=== PATIENT | male | born 1960 | race African-American/Black ===

== ENCOUNTER 2016-08-02 20:46 | Emergency (ER) | payer MEDICAID ==
[~2016-08-02] VITALS: Ht 180.3 cm; Wt 82.0 kg
[~2016-08-02 20:46] MED LIST: AMLO-511 PO; CARI350 PO; CEPH500 PO; GABA-531 PO; HUM10VIA SQ; LISI20TA PO; OXYC-158 PO
[2016-08-02] MEDS ORDERED: OXYC40 PO (21:14)
[2016-08-03 06:11] VITALS: BP 141/62
== END 2016-08-03 06:39 | disposition home or self-care (01) ==
LOC: EMS 20:47
DX: T68.XXXA Hypothermia, initial encounter (principal); S31.000D Unspecified open wound of lower back and pelvis without penetration into retroperitoneum, subsequent encounter; E11.9 Type 2 diabetes mellitus without complications; I10 Essential (primary) hypertension; Z59.0 Homelessness
CPT/HCPCS: 82962; 99283

== ENCOUNTER 2016-08-03 08:39 | Emergency (ER) | payer MEDICAID ==
[~2016-08-03] VITALS: Ht 175.3 cm; Wt 64.0 kg
[~2016-08-03 08:39] MED LIST changes: -CEPH500 PO; +OXYC40 PO
[2016-08-03 09:11] LABS: GLUCOSE,POINT OF CARE 109 MG/DL (70-110)
[2016-08-03 17:00] VITALS: BP 148/86
== END 2016-08-03 17:42 | disposition home or self-care (01) ==
LOC: EMS 08:40
DX: R52 Pain, unspecified (principal); Z99.3 Dependence on wheelchair; I10 Essential (primary) hypertension; E11.9 Type 2 diabetes mellitus without complications; Z86.73 Personal history of transient ischemic attack (TIA), and cerebral infarction without residual deficits; Z79.4 Long term (current) use of insulin
CPT/HCPCS: 82962; 99283

== ENCOUNTER 2016-08-04 07:07 | Emergency (ER) | payer MEDICAID ==
[~2016-08-04] VITALS: Ht 170.2 cm; Wt 72.5 kg
[~2016-08-04 07:07] MED LIST changes: +CEPH500 PO
[2016-08-04 08:32] LABS: GLUCOSE,POINT OF CARE 257 MG/DL (70-110)
[2016-08-04 16:40] VITALS: BP 134/73
== END 2016-08-04 16:42 | disposition home or self-care (01) ==
LOC: EMS 07:08
DX: Z99.3 Dependence on wheelchair (principal); E11.9 Type 2 diabetes mellitus without complications; I10 Essential (primary) hypertension; Z86.73 Personal history of transient ischemic attack (TIA), and cerebral infarction without residual deficits; Z79.4 Long term (current) use of insulin
CPT/HCPCS: 82962; 99283

== ENCOUNTER 2017-10-28 18:59 | Emergency (ER) | payer MEDICAID ==
[~2017-10-28] VITALS: Ht 172.7 cm; Wt 77.0 kg
[~2017-10-28 18:59] MED LIST changes: -CEPH500 PO
[2017-10-28] MEDS ORDERED: LISI-662 PO (19:16)
[2017-10-28] MEDS ORDERED: METF500T7 PO (19:16)
[2017-10-28] MEDS ORDERED: DOXY100C PO (19:16)
[2017-10-28] MEDS ORDERED: AMOX500C2 PO (19:16)
[2017-10-28] MEDS ORDERED: ASPI-1182 PO (19:16)
[2017-10-28] MEDS ORDERED: AMLO-512 PO (19:16)
[2017-10-28] MEDS ORDERED: SITA100 PO (19:16)
[2017-10-28] MEDS ORDERED: ATOR40TA28 PO (19:16)
[2017-10-28] MEDS ORDERED: GABA-531 PO (19:16)
[2017-10-28 19:27] LABS: GLUCOSE,POINT OF CARE 169 MG/DL (70-110)
[2017-10-28 19:40] LABS: BASOPHILS % (AUTO) 0.6 % (0.0-2.0); EOSINOPHILS % (AUTO) 4.6 % (1.0-6.0); HEMATOCRIT 34.9 % (41-53); HEMOGLOBIN 11.9 g/dL (13.5-17.5); LYMPHOCYTES # (AUTO) 1.6 K/uL (1.0-4.8); LYMPHOCYTES % (AUTO) 20.1 % (22.0-44.0); MEAN CORPUSCULAR HEMOGLOBIN 26.9 pg (26.0-34.0); MEAN CORPUSCULAR HGB CONC 34.2 G/dL (31.0-37.0); MEAN CORPUSCULAR VOLUME 79 fL (80-100); MONOCYTES # (AUTO) 0.6 K/uL (0.1-1.0); MONOCYTES % (AUTO) 7.3 % (2.0-9.0); NEUTROPHILS # (AUTO) 5.2 K/uL (1.8-7.7); NEUTROPHILS % (AUTO) 67.4 % (40.0-70.0); PLATELET COUNT (AUTO) 316 K/uL (150-450); RED BLOOD CELL COUNT(AUTO) 4.43 MIL/uL (4.50-5.90); RED CELL DISTRIBUTION WIDTH 14.2 % (11.5-14.5)
[2017-10-28 19:57] LABS: ANION GAP 2 mmol/L (8-16); CALCIUM, TOTAL 9.1 mg/dL (8.8-10.5); CARBON DIOXIDE 34 mmol/L (22-29); CHLORIDE 101 mmol/L (98-107); CREATININE 0.87 mg/dL (0.60-1.30); GLOMERULAR FILTR. RATE CALC > 60 mL/min (>60); GLUCOSE,RANDOM 157 mg/dL (70-110); POTASSIUM 3.7 mmol/L (3.5-5.1); SODIUM SERUM 137 mmol/L (136-145); UREA NITROGEN, BLOOD 33 mg/dL (7-18)
[2017-10-28 20:02] VITALS: BP 149/69
[2017-10-28 20:02] LABS: ALANINE AMINOTRANSFERASE 36 U/L (12-78); ALBUMIN 3.1 g/dL (3.4-5.0); ALKALINE PHOSPHATASE 84 U/L (46-116); ASPARTATE AMINOTRANSFERASE 27 U/L (15-37); BILIRUBIN,TOTAL 0.1 mg/dL (0.1-1.0); TOTAL PROTEIN, SERUM 7.7 g/dL (6.4-8.2)
== END 2017-10-28 21:16 | disposition home or self-care (01) ==
LOC: EMS 18:59
DX: E11.621 Type 2 diabetes mellitus with foot ulcer (principal); L97.519 Non-pressure chronic ulcer of other part of right foot with unspecified severity; L89.329 Pressure ulcer of left buttock, unspecified stage; I10 Essential (primary) hypertension; Z79.82 Long term (current) use of aspirin; Z86.73 Personal history of transient ischemic attack (TIA), and cerebral infarction without residual deficits; Z88.1 Allergy status to other antibiotic agents; Z89.421 Acquired absence of other right toe(s); Z79.4 Long term (current) use of insulin; Z89.612 Acquired absence of left leg above knee; Z99.3 Dependence on wheelchair; Z79.899 Other long term (current) drug therapy
CPT/HCPCS: 99284

== ENCOUNTER 2018-09-17 03:58 | Inpatient (IN) | payer MEDICAID ==
[~2018-09-17] VITALS: Ht 180.3 cm; Wt 75.0 kg
[~2018-09-17 03:58] MED LIST changes: -AMLO-511 PO; +AMLO-512 PO; +AMOX500C2 PO; +ASPI-1182 PO; +ATOR40TA28 PO; -CARI350 PO; +DOXY100C PO; -HUM10VIA SQ; +LISI-662 PO; -LISI20TA PO; +METF500T7 PO; -OXYC-158 PO; -OXYC40 PO; +SITA100 PO
[2018-09-17 04:14] LABS: GLUCOSE,POINT OF CARE 304 MG/DL (70-110)
[2018-09-17] MEDS ORDERED: SODIUM CHLORIDE 0.9% 1,000 ML IV ONE (04:15)
[2018-09-17] MEDS ORDERED: HYD25 PO (04:25)
[2018-09-17] MEDS ORDERED: FAMO20 PO (04:25)
[2018-09-17] MEDS ORDERED: SENN-176 PO (04:25)
[2018-09-17] MEDS ORDERED: LACT30L PO (04:25)
[2018-09-17] MEDS ORDERED: MULT-1272 PO (04:25)
[2018-09-17] MEDS ORDERED: INSNOV SQ (04:25)
[2018-09-17] MEDS ORDERED: TEMA7.5C17 PO (04:25)
[2018-09-17] MEDS ORDERED: MONT10TA21 PO (04:25)
[2018-09-17] MEDS ORDERED: AMMO225L14 TP (04:25)
[2018-09-17] MEDS ORDERED: BISA5TAB12 PO (04:25)
[2018-09-17] MEDS ORDERED: THIA100T67 PO (04:25)
[2018-09-17] MEDS ORDERED: OLAN10TA3 PO (04:25)
[2018-09-17] MEDS ORDERED: HYDR25TA84 PO (04:25)
[2018-09-17] MEDS ORDERED: HYDR-4061 PO (04:25)
[2018-09-17] MEDS ORDERED: INSLAN SQ (04:25)
[2018-09-17 05:03] LABS: BASOPHILS % (AUTO) 0.9 % (0.0-2.0); EOSINOPHILS % (AUTO) 7.3 % (1.0-6.0); HEMATOCRIT 32.3 % (41-53); HEMOGLOBIN 10.6 g/dL (13.5-17.5); LYMPHOCYTES # (AUTO) 1.6 K/uL (1.0-4.8); LYMPHOCYTES % (AUTO) 18.8 % (22.0-44.0); MEAN CORPUSCULAR HEMOGLOBIN 24.2 pg (26.0-34.0); MEAN CORPUSCULAR HGB CONC 32.8 G/dL (31.0-37.0); MEAN CORPUSCULAR VOLUME 74 fL (80-100); MONOCYTES # (AUTO) 0.7 K/uL (0.1-1.0); MONOCYTES % (AUTO) 8.8 % (2.0-9.0); NEUTROPHILS # (AUTO) 5.4 K/uL (1.8-7.7); NEUTROPHILS % (AUTO) 64.2 % (40.0-70.0); PLATELET COUNT (AUTO) 238 K/uL (150-450); RED BLOOD CELL COUNT(AUTO) 4.38 MIL/uL (4.50-5.90); RED CELL DISTRIBUTION WIDTH 20.7 % (11.5-14.5)
[2018-09-17 05:14] LABS: PROTHROMBIN TIME 10.2 SEC (9.4-11.6)
[2018-09-17 05:27] LABS: ALANINE AMINOTRANSFERASE 24 U/L (12-78); ALBUMIN 3.2 g/dL (3.4-5.0); ALKALINE PHOSPHATASE 94 U/L (46-116); ANION GAP 7 mmol/L (8-16); ASPARTATE AMINOTRANSFERASE 21 U/L (15-37); BILIRUBIN,TOTAL 0.3 mg/dL (0.1-1.0); CALCIUM, TOTAL 8.7 mg/dL (8.8-10.5); CARBON DIOXIDE 27 mmol/L (22-29); CHLORIDE 101 mmol/L (98-107); CREATINE KINASE, TOTAL ONLY 674 U/L (39-308); CREATININE 1.24 mg/dL (0.60-1.30); GLOMERULAR FILTR. RATE CALC > 60 mL/min (>60); GLUCOSE,RANDOM 256 mg/dL (70-110); POTASSIUM 3.6 mmol/L (3.5-5.1); SODIUM SERUM 135 mmol/L (136-145); TOTAL PROTEIN, SERUM 7.5 g/dL (6.4-8.2)
[2018-09-17 06:15] LABS: UREA NITROGEN, BLOOD 25 mg/dL (7-18)
[2018-09-17] MEDS ORDERED: 0.9% SODIUM CHLORIDE 10 ML SYRINGE IVP PRN (07:30)
[2018-09-17] MEDS ORDERED: ONDANSETRON HCL 4 MG/2 ML VIAL IVP PRN (07:30)
[2018-09-17] MEDS ORDERED: ACETAMINOPHEN 325 MG TABLET PO PRN (07:30)
[2018-09-17 08:15] LABS: GLUCOSE,POINT OF CARE 221 MG/DL (70-110)
[2018-09-17 08:55] VITALS: BP 151/85
[2018-09-17] MEDS ORDERED: DEXTROSE 50%-WATER 25 GM/50 ML SYRINGE IVP PRN (09:45)
[2018-09-17] MEDS ORDERED: MAGNESIUM HYDROXIDE SUSPENSION 30 ML UDCUP PO PRN (09:45)
[2018-09-17] MEDS ORDERED: ALBUTEROL SULFATE 2.5 MG/0.5 ML NEB SOLUTION NEB PRN (09:45)
[2018-09-17] MEDS: MULTIVITAMINS WITH MINERALS, THERAPEUTIC TABLET PO SCH (10:35)
[2018-09-17] MEDS: AmLODIPine BESYLATE 10 MG TABLET PO SCH (10:36)
[2018-09-17] MEDS: ASPIRIN 81 MG CHEWABLE TABLET PO SCH (10:36)
[2018-09-17 11:50] VITALS: BP 148/74
[2018-09-17] MEDS: INSULIN LISPRO 100 UNITS/ML SQ PRN ×3 (11:55→21:49)
[2018-09-17 11:59] LABS: GLUCOMETER DEV NAME(LOC) 5N.2; GLUCOSE,POINT OF CARE 243 MG/DL (70-110)
[2018-09-17] MEDS: HEPARIN SODIUM,PORCINE 5,000 UNITS/ML VIAL SQ SCH ×2 (16:00→23:35)
[2018-09-17 16:04] VITALS: BP 139/71
[2018-09-17 19:20] VITALS: BP 140/86
[2018-09-17 19:39] LABS: GLUCOMETER DEV NAME(LOC) 5N.2; GLUCOSE,POINT OF CARE 255 MG/DL (70-110)
[2018-09-17] MEDS: ATORVASTATIN CALCIUM 20 MG TABLET PO SCH (20:14)
[2018-09-17] MEDS: DOCUSATE SODIUM 100 MG CAPSULE PO SCH (20:14)
[2018-09-17 20:22] LABS: APPEARANCE,URINE CLEAR (CLEAR); BILIRUBIN,URINE NEGATIVE (NEGATIVE); GLUCOSE, URINE (UA) 250 mg/dL (NEGATIVE); KETONES,URINE NEGATIVE (NEGATIVE); LEUKOCYTE ESTERASE ,URINE NEGATIVE (NEGATIVE); NITRATE,URINE NEGATIVE (NEGATIVE); OCCULT BLOOD,URINE NEGATIVE (NEGATIVE); PH,URINE 5.5 (5.0-8.0); PROTEIN,URINE TRACE (NEGATIVE); UROBILINOGEN,URINE 0.2 mg/dL (<=1.0)
[2018-09-17 20:26] LABS: AMPHET/METH SCREEN,URINE POSITIVE (NEGATIVE); BARBITURATE SCREEN, URINE NEGATIVE (NEGATIVE); BENZODIAZEPINES SCREEN,URINE NEGATIVE (NEGATIVE); CANNABINOID SCREEN,URINE POSITIVE (NEGATIVE); COCAINE SCREEN,URINE NEGATIVE (NEGATIVE); METHADONE SCREEN, URINE NEGATIVE (NEGATIVE); OPIATE SCREEN,URINE NEGATIVE (NEGATIVE)
[2018-09-17 20:27] LABS: PHENCYCLIDINE SCREEN,URINE NEGATIVE (NEGATIVE)
[2018-09-17 20:29] LABS: BACTERIA,URINE None Seen /HPF (None Seen); RBC,URINE None Seen /HPF (0-2); WBC,URINE None Seen /HPF (0-5)
[2018-09-17 21:39] LABS: GLUCOMETER DEV NAME(LOC) 5N.2; GLUCOSE,POINT OF CARE 248 MG/DL (70-110)
[2018-09-17 23:13] VITALS: BP 150/87
[2018-09-18 05:17] VITALS: BP 152/92
[2018-09-18 07:33] VITALS: BP 156/80
[2018-09-18] MEDS: AmLODIPine BESYLATE 10 MG TABLET PO SCH (07:54)
[2018-09-18] MEDS: MULTIVITAMINS WITH MINERALS, THERAPEUTIC TABLET PO SCH (07:54)
[2018-09-18] MEDS: DOCUSATE SODIUM 100 MG CAPSULE PO SCH ×2 (07:54→20:37)
[2018-09-18] MEDS: ASPIRIN 81 MG CHEWABLE TABLET PO SCH (07:54)
[2018-09-18] MEDS: INSULIN LISPRO 100 UNITS/ML SQ PRN ×4 (07:55→21:02)
[2018-09-18] MEDS: HEPARIN SODIUM,PORCINE 5,000 UNITS/ML VIAL SQ SCH ×3 (07:55→23:27)
[2018-09-18] MEDS: FAMOTIDINE 20 MG TABLET PO SCH (08:31)
[2018-09-18 11:30] VITALS: BP 158/72
[2018-09-18 12:14] LABS: GLUCOMETER DEV NAME(LOC) 5N.2; GLUCOSE,POINT OF CARE 172 MG/DL (70-110)
[2018-09-18 12:14] LABS: GLUCOMETER DEV NAME(LOC) 5N.2; GLUCOSE,POINT OF CARE 218 MG/DL (70-110)
[2018-09-18 15:51] VITALS: BP 163/89
[2018-09-18 19:00] VITALS: BP 163/92
[2018-09-18 20:20] LABS: GLUCOMETER DEV NAME(LOC) 5N.2; GLUCOSE,POINT OF CARE 181 MG/DL (70-110)
[2018-09-18] MEDS: ATORVASTATIN CALCIUM 20 MG TABLET PO SCH (20:37)
[2018-09-18] MEDS: OxyCODONE HCL/ACETAMINOPHEN 5-325 MG TABLET PO PRN (20:37)
[2018-09-18 20:49] LABS: GLUCOMETER DEV NAME(LOC) 5N.2; GLUCOSE,POINT OF CARE 211 MG/DL (70-110)
[2018-09-18 23:27] VITALS: BP 157/79
[2018-09-19 04:00] VITALS: BP 125/79
[2018-09-19] MEDS: INSULIN LISPRO 100 UNITS/ML SQ PRN ×4 (05:23→20:21)
[2018-09-19 05:54] LABS: GLUCOMETER DEV NAME(LOC) 5N.2; GLUCOSE,POINT OF CARE 213 MG/DL (70-110)
[2018-09-19 08:43] VITALS: BP 174/93
[2018-09-19] MEDS: DOCUSATE SODIUM 100 MG CAPSULE PO SCH ×2 (09:06→20:14)
[2018-09-19] MEDS: FAMOTIDINE 20 MG TABLET PO SCH (09:06)
[2018-09-19] MEDS: ASPIRIN 81 MG CHEWABLE TABLET PO SCH (09:06)
[2018-09-19] MEDS: OxyCODONE HCL/ACETAMINOPHEN 5-325 MG TABLET PO PRN (09:07)
[2018-09-19] MEDS: HEPARIN SODIUM,PORCINE 5,000 UNITS/ML VIAL SQ SCH ×2 (09:07→16:09)
[2018-09-19] MEDS: MULTIVITAMINS WITH MINERALS, THERAPEUTIC TABLET PO SCH (09:07)
[2018-09-19] MEDS: AmLODIPine BESYLATE 10 MG TABLET PO SCH (09:07)
[2018-09-19 09:18] LABS: BASOPHILS % (AUTO) 0.8 % (0.0-2.0); EOSINOPHILS % (AUTO) 8.8 % (1.0-6.0); HEMATOCRIT 32.2 % (41-53); HEMOGLOBIN 10.7 g/dL (13.5-17.5); LYMPHOCYTES # (AUTO) 1.4 K/uL (1.0-4.8); LYMPHOCYTES % (AUTO) 23.7 % (22.0-44.0); MEAN CORPUSCULAR HEMOGLOBIN 24.5 pg (26.0-34.0); MEAN CORPUSCULAR HGB CONC 33.2 G/dL (31.0-37.0); MEAN CORPUSCULAR VOLUME 74 fL (80-100); MONOCYTES # (AUTO) 0.6 K/uL (0.1-1.0); MONOCYTES % (AUTO) 9.7 % (2.0-9.0); NEUTROPHILS # (AUTO) 3.3 K/uL (1.8-7.7); PLATELET COUNT (AUTO) 273 K/uL (150-450); RED BLOOD CELL COUNT(AUTO) 4.35 MIL/uL (4.50-5.90); RED CELL DISTRIBUTION WIDTH 20.4 % (11.5-14.5)
[2018-09-19 09:32] LABS: ALANINE AMINOTRANSFERASE 19 U/L (12-78); ALBUMIN 2.9 g/dL (3.4-5.0); ALKALINE PHOSPHATASE 83 U/L (46-116); ANION GAP 8 mmol/L (8-16); ASPARTATE AMINOTRANSFERASE 12 U/L (15-37); BILIRUBIN,TOTAL 0.2 mg/dL (0.1-1.0); CALCIUM, TOTAL 8.8 mg/dL (8.8-10.5); CARBON DIOXIDE 29 mmol/L (22-29); CHLORIDE 104 mmol/L (98-107); CREATININE 0.91 mg/dL (0.60-1.30); GLOMERULAR FILTR. RATE CALC > 60 mL/min (>60); GLUCOSE,RANDOM 241 mg/dL (70-110); POTASSIUM 3.8 mmol/L (3.5-5.1); SODIUM SERUM 141 mmol/L (136-145); TOTAL PROTEIN, SERUM 7.3 g/dL (6.4-8.2); UREA NITROGEN, BLOOD 19 mg/dL (7-18)
[2018-09-19 11:46] VITALS: BP 157/91
[2018-09-19 12:19] LABS: GLUCOMETER DEV NAME(LOC) 5N.2; GLUCOSE,POINT OF CARE 272 MG/DL (70-110)
[2018-09-19 15:44] VITALS: BP 140/80
[2018-09-19] MEDS ORDERED: OxyCODONE HCL 20 MG ER TABLET PO PRN (17:45)
[2018-09-19] MEDS: ATORVASTATIN CALCIUM 20 MG TABLET PO SCH (20:14)
[2018-09-19] MEDS: OxyCODONE HCL 20 MG ER TABLET PO SCH (20:14)
[2018-09-19 20:24] VITALS: BP 169/89
[2018-09-19 22:17] LABS: GLUCOMETER DEV NAME(LOC) 5N.2; GLUCOSE,POINT OF CARE 146 MG/DL (70-110)
[2018-09-19 22:17] LABS: GLUCOMETER DEV NAME(LOC) 5N.2; GLUCOSE,POINT OF CARE 216 MG/DL (70-110)
[2018-09-20] VITALS (7 sets, daily range): BP systolic 151–166; BP diastolic 68–87
[2018-09-20] MEDS: HEPARIN SODIUM,PORCINE 5,000 UNITS/ML VIAL SQ SCH ×4 (00:15→23:46)
[2018-09-20] MEDS: OxyCODONE HCL/ACETAMINOPHEN 5-325 MG TABLET PO PRN ×2 (00:15→15:59)
[2018-09-20 05:40] LABS: GLUCOMETER DEV NAME(LOC) 5N.2; GLUCOSE,POINT OF CARE 194 MG/DL (70-110)
[2018-09-20 05:51] LABS: BASOPHILS % (AUTO) 0.7 % (0.0-2.0); EOSINOPHILS % (AUTO) 7.1 % (1.0-6.0); HEMATOCRIT 31.5 % (41-53); HEMOGLOBIN 10.5 g/dL (13.5-17.5); LYMPHOCYTES # (AUTO) 2.1 K/uL (1.0-4.8); LYMPHOCYTES % (AUTO) 30.3 % (22.0-44.0); MEAN CORPUSCULAR HEMOGLOBIN 24.5 pg (26.0-34.0); MEAN CORPUSCULAR HGB CONC 33.2 G/dL (31.0-37.0); MEAN CORPUSCULAR VOLUME 74 fL (80-100); MONOCYTES # (AUTO) 0.7 K/uL (0.1-1.0); MONOCYTES % (AUTO) 10.3 % (2.0-9.0); NEUTROPHILS # (AUTO) 3.5 K/uL (1.8-7.7); NEUTROPHILS % (AUTO) 51.6 % (40.0-70.0); PLATELET COUNT (AUTO) 299 K/uL (150-450); RED BLOOD CELL COUNT(AUTO) 4.27 MIL/uL (4.50-5.90); RED CELL DISTRIBUTION WIDTH 20.5 % (11.5-14.5)
[2018-09-20 06:18] LABS: ALANINE AMINOTRANSFERASE 14 U/L (12-78); ALKALINE PHOSPHATASE 82 U/L (46-116); ANION GAP 5 mmol/L (8-16); ASPARTATE AMINOTRANSFERASE 12 U/L (15-37); BILIRUBIN,TOTAL 0.2 mg/dL (0.1-1.0); CALCIUM, TOTAL 9.1 mg/dL (8.8-10.5); CARBON DIOXIDE 31 mmol/L (22-29); CHLORIDE 101 mmol/L (98-107); CREATININE 0.98 mg/dL (0.60-1.30); GLOMERULAR FILTR. RATE CALC > 60 mL/min (>60); GLUCOSE,RANDOM 191 mg/dL (70-110); POTASSIUM 3.9 mmol/L (3.5-5.1); SODIUM SERUM 137 mmol/L (136-145); TOTAL PROTEIN, SERUM 7.6 g/dL (6.4-8.2); UREA NITROGEN, BLOOD 20 mg/dL (7-18)
[2018-09-20] MEDS: INSULIN LISPRO 100 UNITS/ML SQ PRN ×4 (06:31→20:49)
[2018-09-20] MEDS: DOCUSATE SODIUM 100 MG CAPSULE PO SCH ×2 (08:25→20:22)
[2018-09-20] MEDS: FAMOTIDINE 20 MG TABLET PO SCH (08:25)
[2018-09-20] MEDS: ASPIRIN 81 MG CHEWABLE TABLET PO SCH (08:25)
[2018-09-20] MEDS: OxyCODONE HCL 20 MG ER TABLET PO SCH ×2 (08:25→20:21)
[2018-09-20] MEDS: MULTIVITAMINS WITH MINERALS, THERAPEUTIC TABLET PO SCH (08:25)
[2018-09-20] MEDS: AmLODIPine BESYLATE 10 MG TABLET PO SCH (08:25)
[2018-09-20 12:15] LABS: GLUCOMETER DEV NAME(LOC) 5N.2; GLUCOSE,POINT OF CARE 221 MG/DL (70-110)
[2018-09-20 18:15] LABS: GLUCOMETER DEV NAME(LOC) 5N.2; GLUCOSE,POINT OF CARE 188 MG/DL (70-110)
[2018-09-20] MEDS: ATORVASTATIN CALCIUM 20 MG TABLET PO SCH (20:21)
[2018-09-20 21:39] LABS: GLUCOMETER DEV NAME(LOC) 5N.2; GLUCOSE,POINT OF CARE 192 MG/DL (70-110)
[2018-09-20] MEDS ORDERED: HydrOXYzine HCL 25 MG TABLET PO PRN (23:30)
[2018-09-20] MEDS ORDERED: DEXTROSE 50%-WATER 25 GM/50 ML SYRINGE IVP PRN (23:30)
[2018-09-20] MEDS: HydrALAZINE HCL 25 MG TABLET PO SCH (23:44)
[2018-09-20] MEDS: INSULIN GLARGINE,HUM.REC.ANLOG 100 UNITS/ML SQ SCH (23:45)
[2018-09-21 04:36] VITALS: BP 151/78
[2018-09-21 05:45] LABS: GLUCOMETER DEV NAME(LOC) 5N.2; GLUCOSE,POINT OF CARE 189 MG/DL (70-110)
[2018-09-21] MEDS: INSULIN LISPRO 100 UNITS/ML SQ PRN ×3 (07:00→17:53)
[2018-09-21] MEDS: HydrALAZINE HCL 25 MG TABLET PO SCH ×3 (07:01→23:20)
[2018-09-21 07:09] VITALS: BP 158/81
[2018-09-21] MEDS: FAMOTIDINE 20 MG TABLET PO SCH (08:08)
[2018-09-21] MEDS: THIAMINE HCL 100 MG TABLET PO SCH (08:08)
[2018-09-21] MEDS: DOCUSATE SODIUM 100 MG CAPSULE PO SCH ×2 (08:08→20:17)
[2018-09-21] MEDS: MULTIVITAMINS WITH MINERALS, THERAPEUTIC TABLET PO SCH ×2 (08:08→09:00)
[2018-09-21] MEDS: AmLODIPine BESYLATE 10 MG TABLET PO SCH (08:08)
[2018-09-21] MEDS: HEPARIN SODIUM,PORCINE 5,000 UNITS/ML VIAL SQ SCH ×3 (08:08→23:20)
[2018-09-21] MEDS: ASPIRIN 81 MG CHEWABLE TABLET PO SCH (08:08)
[2018-09-21] MEDS: LACTULOSE 20 GM/30 ML SOLUTION UDCUP PO SCH (08:09)
[2018-09-21] MEDS: OLANZapine 10 MG TABLET PO SCH ×2 (09:00→20:16)
[2018-09-21] MEDS: OxyCODONE HCL 20 MG ER TABLET PO SCH ×2 (09:18→20:27)
[2018-09-21] MEDS: SENNA 187 MG TABLET PO SCH (09:31)
[2018-09-21 10:45] LABS: BASOPHILS % (AUTO) 0.8 % (0.0-2.0); EOSINOPHILS % (AUTO) 3.7 % (1.0-6.0); HEMATOCRIT 32.7 % (41-53); HEMOGLOBIN 10.7 g/dL (13.5-17.5); LYMPHOCYTES # (AUTO) 1.1 K/uL (1.0-4.8); LYMPHOCYTES % (AUTO) 8.7 % (22.0-44.0); MEAN CORPUSCULAR HEMOGLOBIN 24.3 pg (26.0-34.0); MEAN CORPUSCULAR HGB CONC 32.8 G/dL (31.0-37.0); MEAN CORPUSCULAR VOLUME 74 fL (80-100); MONOCYTES # (AUTO) 0.9 K/uL (0.1-1.0); MONOCYTES % (AUTO) 7.6 % (2.0-9.0); NEUTROPHILS # (AUTO) 9.8 K/uL (1.8-7.7); NEUTROPHILS % (AUTO) 79.2 % (40.0-70.0); PLATELET COUNT (AUTO) 297 K/uL (150-450); RED BLOOD CELL COUNT(AUTO) 4.42 MIL/uL (4.50-5.90); RED CELL DISTRIBUTION WIDTH 20.1 % (11.5-14.5)
[2018-09-21 11:01] LABS: ALANINE AMINOTRANSFERASE 14 U/L (12-78); ALBUMIN 3.1 g/dL (3.4-5.0); ALKALINE PHOSPHATASE 88 U/L (46-116); ANION GAP 7 mmol/L (8-16); ASPARTATE AMINOTRANSFERASE 13 U/L (15-37); BILIRUBIN,TOTAL 0.2 mg/dL (0.1-1.0); CALCIUM, TOTAL 9.5 mg/dL (8.8-10.5); CARBON DIOXIDE 28 mmol/L (22-29); CHLORIDE 99 mmol/L (98-107); CREATININE 1.01 mg/dL (0.60-1.30); GLOMERULAR FILTR. RATE CALC > 60 mL/min (>60); GLUCOSE,RANDOM 274 mg/dL (70-110); POTASSIUM 4.3 mmol/L (3.5-5.1); SODIUM SERUM 134 mmol/L (136-145); TOTAL PROTEIN, SERUM 7.8 g/dL (6.4-8.2); UREA NITROGEN, BLOOD 22 mg/dL (7-18)
[2018-09-21 11:11] VITALS: BP 157/76
[2018-09-21 15:17] VITALS: BP 149/85
[2018-09-21 15:28] LABS: GLUCOMETER DEV NAME(LOC) 5N.2; GLUCOSE,POINT OF CARE 247 MG/DL (70-110)
[2018-09-21 17:25] LABS: GLUCOMETER DEV NAME(LOC) 5N.2; GLUCOSE,POINT OF CARE 181 MG/DL (70-110)
[2018-09-21 19:15] VITALS: BP 153/90
[2018-09-21] MEDS: ATORVASTATIN CALCIUM 20 MG TABLET PO SCH (20:16)
[2018-09-21] MEDS: OxyCODONE HCL/ACETAMINOPHEN 5-325 MG TABLET PO PRN (20:16)
[2018-09-21] MEDS: TEMAZEPAM 7.5 MG CAPSULE PO SCH (20:16)
[2018-09-21] MEDS: MONTELUKAST SODIUM 10 MG TABLET PO SCH (20:17)
[2018-09-21] MEDS: INSULIN GLARGINE,HUM.REC.ANLOG 100 UNITS/ML SQ SCH (20:28)
[2018-09-21 21:27] LABS: GLUCOMETER DEV NAME(LOC) 5N.2; GLUCOSE,POINT OF CARE 134 MG/DL (70-110)
[2018-09-21 23:15] VITALS: BP 135/76
[2018-09-22 04:15] VITALS: BP 141/80
[2018-09-22 05:34] LABS: GLUCOMETER DEV NAME(LOC) 5N.2; GLUCOSE,POINT OF CARE 134 MG/DL (70-110)
[2018-09-22 08:43] LABS: BASOPHILS % (AUTO) 0.7 % (0.0-2.0); EOSINOPHILS % (AUTO) 3.8 % (1.0-6.0); HEMATOCRIT 33.9 % (41-53); HEMOGLOBIN 11.1 g/dL (13.5-17.5); LYMPHOCYTES # (AUTO) 1.3 K/uL (1.0-4.8); LYMPHOCYTES % (AUTO) 14.4 % (22.0-44.0); MEAN CORPUSCULAR HEMOGLOBIN 24.3 pg (26.0-34.0); MEAN CORPUSCULAR HGB CONC 32.8 G/dL (31.0-37.0); MEAN CORPUSCULAR VOLUME 74 fL (80-100); MONOCYTES % (AUTO) 10.2 % (2.0-9.0); NEUTROPHILS # (AUTO) 6.6 K/uL (1.8-7.7); NEUTROPHILS % (AUTO) 70.9 % (40.0-70.0); PLATELET COUNT (AUTO) 306 K/uL (150-450); RED BLOOD CELL COUNT(AUTO) 4.59 MIL/uL (4.50-5.90); RED CELL DISTRIBUTION WIDTH 20.4 % (11.5-14.5)
[2018-09-22] MEDS: MULTIVITAMINS WITH MINERALS, THERAPEUTIC TABLET PO SCH ×2 (09:00→09:28)
[2018-09-22 09:09] LABS: ALANINE AMINOTRANSFERASE 15 U/L (12-78); ALBUMIN 3.1 g/dL (3.4-5.0); ALKALINE PHOSPHATASE 78 U/L (46-116); ANION GAP 8 mmol/L (8-16); ASPARTATE AMINOTRANSFERASE 15 U/L (15-37); BILIRUBIN,TOTAL 0.3 mg/dL (0.1-1.0); CALCIUM, TOTAL 9.3 mg/dL (8.8-10.5); CARBON DIOXIDE 28 mmol/L (22-29); CHLORIDE 102 mmol/L (98-107); CREATININE 1.06 mg/dL (0.60-1.30); GLOMERULAR FILTR. RATE CALC > 60 mL/min (>60); GLUCOSE,RANDOM 129 mg/dL (70-110); POTASSIUM 4.1 mmol/L (3.5-5.1); SODIUM SERUM 138 mmol/L (136-145); UREA NITROGEN, BLOOD 24 mg/dL (7-18)
[2018-09-22 09:16] VITALS: BP 150/74
[2018-09-22] MEDS: OLANZapine 10 MG TABLET PO SCH ×2 (09:28→20:33)
[2018-09-22] MEDS: OxyCODONE HCL 20 MG ER TABLET PO SCH ×2 (09:28→20:33)
[2018-09-22] MEDS: THIAMINE HCL 100 MG TABLET PO SCH (09:28)
[2018-09-22] MEDS: ASPIRIN 81 MG CHEWABLE TABLET PO SCH (09:28)
[2018-09-22] MEDS: AmLODIPine BESYLATE 10 MG TABLET PO SCH (09:28)
[2018-09-22] MEDS: DOCUSATE SODIUM 100 MG CAPSULE PO SCH ×2 (09:28→20:34)
[2018-09-22] MEDS: HydrALAZINE HCL 25 MG TABLET PO SCH ×3 (09:28→23:18)
[2018-09-22] MEDS: HEPARIN SODIUM,PORCINE 5,000 UNITS/ML VIAL SQ SCH ×3 (09:29→23:18)
[2018-09-22] MEDS: SENNA 187 MG TABLET PO SCH (09:29)
[2018-09-22] MEDS: LACTULOSE 20 GM/30 ML SOLUTION UDCUP PO SCH (09:29)
[2018-09-22] MEDS: FAMOTIDINE 20 MG TABLET PO SCH (09:38)
[2018-09-22 11:23] VITALS: BP 137/79
[2018-09-22 16:03] VITALS: BP 149/75
[2018-09-22] MEDS: INSULIN LISPRO 100 UNITS/ML SQ PRN ×2 (17:26→20:34)
[2018-09-22 20:00] VITALS: BP 145/73
[2018-09-22] MEDS: MONTELUKAST SODIUM 10 MG TABLET PO SCH (20:32)
[2018-09-22] MEDS: INSULIN GLARGINE,HUM.REC.ANLOG 100 UNITS/ML SQ SCH (20:33)
[2018-09-22] MEDS: ATORVASTATIN CALCIUM 20 MG TABLET PO SCH (20:33)
[2018-09-22] MEDS: TEMAZEPAM 7.5 MG CAPSULE PO SCH (20:33)
[2018-09-22 20:52] LABS: GLUCOMETER DEV NAME(LOC) 5N.2; GLUCOSE,POINT OF CARE 194 MG/DL (70-110)
[2018-09-22 20:52] LABS: GLUCOMETER DEV NAME(LOC) 5N.2; GLUCOSE,POINT OF CARE 282 MG/DL (70-110)
[2018-09-22 23:45] VITALS: BP 120/67
[2018-09-23 04:00] VITALS: BP 127/63
[2018-09-23 05:05] LABS: GLUCOMETER DEV NAME(LOC) 5N.2; GLUCOSE,POINT OF CARE 211 MG/DL (70-110)
[2018-09-23 05:54] LABS: BASOPHILS % (AUTO) 0.6 % (0.0-2.0); EOSINOPHILS % (AUTO) 2.2 % (1.0-6.0); HEMATOCRIT 31.9 % (41-53); HEMOGLOBIN 10.5 g/dL (13.5-17.5); LYMPHOCYTES # (AUTO) 1.7 K/uL (1.0-4.8); LYMPHOCYTES % (AUTO) 12.2 % (22.0-44.0); MEAN CORPUSCULAR HEMOGLOBIN 24.2 pg (26.0-34.0); MEAN CORPUSCULAR VOLUME 73 fL (80-100); MONOCYTES # (AUTO) 1.4 K/uL (0.1-1.0); MONOCYTES % (AUTO) 10.2 % (2.0-9.0); NEUTROPHILS # (AUTO) 10.2 K/uL (1.8-7.7); NEUTROPHILS % (AUTO) 74.8 % (40.0-70.0); PLATELET COUNT (AUTO) 322 K/uL (150-450); RED BLOOD CELL COUNT(AUTO) 4.36 MIL/uL (4.50-5.90); RED CELL DISTRIBUTION WIDTH 20.4 % (11.5-14.5)
[2018-09-23 06:22] LABS: ALBUMIN 3.1 g/dL (3.4-5.0); BILIRUBIN,TOTAL 0.2 mg/dL (0.1-1.0); CALCIUM, TOTAL 8.9 mg/dL (8.8-10.5); CREATININE 1.5 mg/dL (0.60-1.30); POTASSIUM 4.5 mmol/L (3.5-5.1); TOTAL PROTEIN, SERUM 7.9 g/dL (6.4-8.2)
[2018-09-23] MEDS: INSULIN LISPRO 100 UNITS/ML SQ PRN ×2 (06:36→20:41)
[2018-09-23] MEDS: HEPARIN SODIUM,PORCINE 5,000 UNITS/ML VIAL SQ SCH ×4 (08:00→23:31)
[2018-09-23 08:19] VITALS: BP 128/73
[2018-09-23] MEDS: HydrALAZINE HCL 25 MG TABLET PO SCH ×3 (08:37→23:31)
[2018-09-23] MEDS: DOCUSATE SODIUM 100 MG CAPSULE PO SCH ×2 (08:37→19:53)
[2018-09-23] MEDS: MULTIVITAMINS WITH MINERALS, THERAPEUTIC TABLET PO SCH ×2 (08:37→08:40)
[2018-09-23] MEDS: THIAMINE HCL 100 MG TABLET PO SCH (08:38)
[2018-09-23] MEDS: LACTULOSE 20 GM/30 ML SOLUTION UDCUP PO SCH (08:38)
[2018-09-23] MEDS: ACETAMINOPHEN 325 MG TABLET PO PRN (08:38)
[2018-09-23] MEDS: FAMOTIDINE 20 MG TABLET PO SCH (08:38)
[2018-09-23] MEDS: OxyCODONE HCL/ACETAMINOPHEN 5-325 MG TABLET PO PRN (08:38)
[2018-09-23] MEDS: AmLODIPine BESYLATE 10 MG TABLET PO SCH (08:38)
[2018-09-23] MEDS: ASPIRIN 81 MG CHEWABLE TABLET PO SCH (08:39)
[2018-09-23] MEDS: SENNA 187 MG TABLET PO SCH (08:39)
[2018-09-23] MEDS: OxyCODONE HCL 20 MG ER TABLET PO SCH ×2 (08:40→19:53)
[2018-09-23] MEDS: OLANZapine 10 MG TABLET PO SCH ×2 (08:51→19:53)
[2018-09-23 15:49] VITALS: BP 129/63
[2018-09-23 19:12] VITALS: BP 141/72
[2018-09-23] MEDS: TEMAZEPAM 7.5 MG CAPSULE PO SCH (19:53)
[2018-09-23] MEDS: MONTELUKAST SODIUM 10 MG TABLET PO SCH (19:53)
[2018-09-23] MEDS: ATORVASTATIN CALCIUM 20 MG TABLET PO SCH (19:53)
[2018-09-23 20:10] LABS: GLUCOMETER DEV NAME(LOC) 5N.2; GLUCOSE,POINT OF CARE 264 MG/DL (70-110)
[2018-09-23] MEDS: INSULIN GLARGINE,HUM.REC.ANLOG 100 UNITS/ML SQ SCH (20:40)
[2018-09-23 23:36] VITALS: BP 141/72
[2018-09-24 05:05] VITALS: BP 125/61
[2018-09-24 05:24] LABS: GLUCOMETER DEV NAME(LOC) 5N.2; GLUCOSE,POINT OF CARE 157 MG/DL (70-110)
[2018-09-24] MEDS: OLANZapine 10 MG TABLET PO SCH ×2 (08:28→20:07)
[2018-09-24] MEDS: SENNA 187 MG TABLET PO SCH (08:28)
[2018-09-24] MEDS: MULTIVITAMINS WITH MINERALS, THERAPEUTIC TABLET PO SCH ×2 (08:29→08:31)
[2018-09-24] MEDS: OxyCODONE HCL/ACETAMINOPHEN 5-325 MG TABLET PO PRN ×2 (08:29→08:31)
[2018-09-24] MEDS: ASPIRIN 81 MG CHEWABLE TABLET PO SCH (08:29)
[2018-09-24] MEDS: HydrALAZINE HCL 25 MG TABLET PO SCH ×3 (08:29→23:03)
[2018-09-24] MEDS: THIAMINE HCL 100 MG TABLET PO SCH (08:29)
[2018-09-24] MEDS: AmLODIPine BESYLATE 10 MG TABLET PO SCH (08:29)
[2018-09-24] MEDS: FAMOTIDINE 20 MG TABLET PO SCH (08:29)
[2018-09-24] MEDS: DOCUSATE SODIUM 100 MG CAPSULE PO SCH ×2 (08:29→20:07)
[2018-09-24] MEDS: LACTULOSE 20 GM/30 ML SOLUTION UDCUP PO SCH (08:30)
[2018-09-24] MEDS: HEPARIN SODIUM,PORCINE 5,000 UNITS/ML VIAL SQ SCH ×3 (08:32→23:05)
[2018-09-24] MEDS: OxyCODONE HCL 20 MG ER TABLET PO SCH ×2 (08:32→20:07)
[2018-09-24 10:12] LABS: BASOPHILS % (AUTO) 0.4 % (0.0-2.0); EOSINOPHILS % (AUTO) 2.3 % (1.0-6.0); HEMATOCRIT 32.5 % (41-53); HEMOGLOBIN 10.5 g/dL (13.5-17.5); LYMPHOCYTES # (AUTO) 1.4 K/uL (1.0-4.8); LYMPHOCYTES % (AUTO) 8.7 % (22.0-44.0); MEAN CORPUSCULAR HGB CONC 32.4 G/dL (31.0-37.0); MEAN CORPUSCULAR VOLUME 74 fL (80-100); MONOCYTES # (AUTO) 1.3 K/uL (0.1-1.0); MONOCYTES % (AUTO) 8.3 % (2.0-9.0); NEUTROPHILS # (AUTO) 12.9 K/uL (1.8-7.7); NEUTROPHILS % (AUTO) 80.3 % (40.0-70.0); PLATELET COUNT (AUTO) 317 K/uL (150-450); RED BLOOD CELL COUNT(AUTO) 4.37 MIL/uL (4.50-5.90); RED CELL DISTRIBUTION WIDTH 20.7 % (11.5-14.5)
[2018-09-24 10:29] LABS: ALANINE AMINOTRANSFERASE 31 U/L (12-78); ALKALINE PHOSPHATASE 85 U/L (46-116); ANION GAP 6 mmol/L (8-16); ASPARTATE AMINOTRANSFERASE 27 U/L (15-37); BILIRUBIN,TOTAL 0.2 mg/dL (0.1-1.0); CALCIUM, TOTAL 9.2 mg/dL (8.8-10.5); CARBON DIOXIDE 28 mmol/L (22-29); CHLORIDE 104 mmol/L (98-107); CREATININE 1.28 mg/dL (0.60-1.30); GLOMERULAR FILTR. RATE CALC > 60 mL/min (>60); GLUCOSE,RANDOM 207 mg/dL (70-110); POTASSIUM 4.5 mmol/L (3.5-5.1); SODIUM SERUM 138 mmol/L (136-145); TOTAL PROTEIN, SERUM 7.9 g/dL (6.4-8.2); UREA NITROGEN, BLOOD 34 mg/dL (7-18)
[2018-09-24] MEDS: INSULIN LISPRO 100 UNITS/ML SQ PRN ×2 (11:47→17:25)
[2018-09-24 11:50] VITALS: BP 124/69
[2018-09-24 12:49] LABS: GLUCOMETER DEV NAME(LOC) 5N.2; GLUCOSE,POINT OF CARE 245 MG/DL (70-110)
[2018-09-24 15:34] VITALS: BP 130/70
[2018-09-24 18:15] LABS: GLUCOMETER DEV NAME(LOC) 5N.2; GLUCOSE,POINT OF CARE 214 MG/DL (70-110)
[2018-09-24 19:45] VITALS: BP 127/72
[2018-09-24] MEDS: MONTELUKAST SODIUM 10 MG TABLET PO SCH (20:07)
[2018-09-24] MEDS: ATORVASTATIN CALCIUM 20 MG TABLET PO SCH (20:07)
[2018-09-24] MEDS: TEMAZEPAM 7.5 MG CAPSULE PO SCH (20:07)
[2018-09-24] MEDS: INSULIN GLARGINE,HUM.REC.ANLOG 100 UNITS/ML SQ SCH (20:14)
[2018-09-24 20:40] LABS: GLUCOMETER DEV NAME(LOC) 5N.2; GLUCOSE,POINT OF CARE 246 MG/DL (70-110)
[2018-09-25 00:18] VITALS: BP 132/88
[2018-09-25 05:34] LABS: GLUCOMETER DEV NAME(LOC) 5N.2; GLUCOSE,POINT OF CARE 141 MG/DL (70-110)
[2018-09-25 06:39] LABS: BASOPHILS % (AUTO) 0.8 % (0.0-2.0); EOSINOPHILS % (AUTO) 3.5 % (1.0-6.0); HEMATOCRIT 33.4 % (41-53); LYMPHOCYTES # (AUTO) 2.2 K/uL (1.0-4.8); LYMPHOCYTES % (AUTO) 17.9 % (22.0-44.0); MEAN CORPUSCULAR HEMOGLOBIN 24.1 pg (26.0-34.0); MEAN CORPUSCULAR HGB CONC 32.8 G/dL (31.0-37.0); MEAN CORPUSCULAR VOLUME 74 fL (80-100); MONOCYTES # (AUTO) 1.2 K/uL (0.1-1.0); MONOCYTES % (AUTO) 9.4 % (2.0-9.0); NEUTROPHILS # (AUTO) 8.5 K/uL (1.8-7.7); NEUTROPHILS % (AUTO) 68.4 % (40.0-70.0); PLATELET COUNT (AUTO) 328 K/uL (150-450); RED BLOOD CELL COUNT(AUTO) 4.55 MIL/uL (4.50-5.90); RED CELL DISTRIBUTION WIDTH 20.2 % (11.5-14.5)
[2018-09-25 07:16] LABS: ALANINE AMINOTRANSFERASE 38 U/L (12-78); ALBUMIN 3.1 g/dL (3.4-5.0); ALKALINE PHOSPHATASE 90 U/L (46-116); ANION GAP 8 mmol/L (8-16); ASPARTATE AMINOTRANSFERASE 24 U/L (15-37); BILIRUBIN,TOTAL 0.2 mg/dL (0.1-1.0); CALCIUM, TOTAL 9.6 mg/dL (8.8-10.5); CARBON DIOXIDE 27 mmol/L (22-29); CHLORIDE 103 mmol/L (98-107); CREATININE 1.19 mg/dL (0.60-1.30); GLOMERULAR FILTR. RATE CALC > 60 mL/min (>60); GLUCOSE,RANDOM 141 mg/dL (70-110); POTASSIUM 4.3 mmol/L (3.5-5.1); SODIUM SERUM 138 mmol/L (136-145); TOTAL PROTEIN, SERUM 8.6 g/dL (6.4-8.2)
[2018-09-25 07:21] LABS: UREA NITROGEN, BLOOD 33 mg/dL (7-18)
[2018-09-25 07:30] VITALS: BP 167/68
[2018-09-25] MEDS: OLANZapine 10 MG TABLET PO SCH ×2 (09:08→19:53)
[2018-09-25] MEDS: ASPIRIN 81 MG CHEWABLE TABLET PO SCH (09:08)
[2018-09-25] MEDS: DOCUSATE SODIUM 100 MG CAPSULE PO SCH ×2 (09:08→19:53)
[2018-09-25] MEDS: HydrALAZINE HCL 25 MG TABLET PO SCH ×3 (09:08→23:13)
[2018-09-25] MEDS: AmLODIPine BESYLATE 10 MG TABLET PO SCH (09:08)
[2018-09-25] MEDS: FAMOTIDINE 20 MG TABLET PO SCH (09:08)
[2018-09-25] MEDS: OxyCODONE HCL/ACETAMINOPHEN 5-325 MG TABLET PO PRN (09:08)
[2018-09-25] MEDS: MULTIVITAMINS WITH MINERALS, THERAPEUTIC TABLET PO SCH (09:09)
[2018-09-25] MEDS: SENNA 187 MG TABLET PO SCH (09:09)
[2018-09-25] MEDS: LACTULOSE 20 GM/30 ML SOLUTION UDCUP PO SCH (09:10)
[2018-09-25] MEDS: HEPARIN SODIUM,PORCINE 5,000 UNITS/ML VIAL SQ SCH ×3 (09:10→23:13)
[2018-09-25] MEDS: THIAMINE HCL 100 MG TABLET PO SCH (09:18)
[2018-09-25] MEDS: OxyCODONE HCL 20 MG ER TABLET PO SCH ×2 (09:18→19:53)
[2018-09-25 11:42] VITALS: BP 119/70
[2018-09-25] MEDS: INSULIN LISPRO 100 UNITS/ML SQ PRN ×2 (12:09→18:05)
[2018-09-25 15:10] VITALS: BP 122/64
[2018-09-25 15:49] LABS: GLUCOMETER DEV NAME(LOC) 5N.2; GLUCOSE,POINT OF CARE 215 MG/DL (70-110)
[2018-09-25] MEDS: MONTELUKAST SODIUM 10 MG TABLET PO SCH (19:53)
[2018-09-25] MEDS: TEMAZEPAM 7.5 MG CAPSULE PO SCH (19:53)
[2018-09-25] MEDS: ATORVASTATIN CALCIUM 20 MG TABLET PO SCH (19:53)
[2018-09-25] MEDS: INSULIN GLARGINE,HUM.REC.ANLOG 100 UNITS/ML SQ SCH (20:05)
[2018-09-25] MEDS: ACETAMINOPHEN 325 MG TABLET PO PRN (23:12)
[2018-09-25 23:45] LABS: GLUCOMETER DEV NAME(LOC) 5N.2; GLUCOSE,POINT OF CARE 172 MG/DL (70-110)
[2018-09-25 23:45] LABS: GLUCOMETER DEV NAME(LOC) 5N.2; GLUCOSE,POINT OF CARE 196 MG/DL (70-110)
[2018-09-26 04:12] VITALS: BP 143/87
[2018-09-26] MEDS: HEPARIN SODIUM,PORCINE 5,000 UNITS/ML VIAL SQ SCH ×3 (08:00→23:37)
[2018-09-26 08:11] VITALS: BP 135/60
[2018-09-26] MEDS: DOCUSATE SODIUM 100 MG CAPSULE PO SCH ×2 (09:00→20:54)
[2018-09-26] MEDS: OLANZapine 10 MG TABLET PO SCH ×2 (09:30→20:54)
[2018-09-26] MEDS: SENNA 187 MG TABLET PO SCH (09:30)
[2018-09-26] MEDS: ASPIRIN 81 MG CHEWABLE TABLET PO SCH (09:30)
[2018-09-26] MEDS: LACTULOSE 20 GM/30 ML SOLUTION UDCUP PO SCH (09:30)
[2018-09-26] MEDS: HydrALAZINE HCL 25 MG TABLET PO SCH ×3 (09:30→23:37)
[2018-09-26] MEDS: THIAMINE HCL 100 MG TABLET PO SCH (09:30)
[2018-09-26] MEDS: FAMOTIDINE 20 MG TABLET PO SCH (09:31)
[2018-09-26] MEDS: OxyCODONE HCL 20 MG ER TABLET PO SCH ×2 (09:31→20:54)
[2018-09-26] MEDS: AmLODIPine BESYLATE 10 MG TABLET PO SCH (09:32)
[2018-09-26] MEDS: MULTIVITAMINS WITH MINERALS, THERAPEUTIC TABLET PO SCH (09:36)
[2018-09-26 09:59] LABS: BASOPHILS % (AUTO) 0.5 % (0.0-2.0); EOSINOPHILS % (AUTO) 1.6 % (1.0-6.0); HEMATOCRIT 32.7 % (41-53); HEMOGLOBIN 10.5 g/dL (13.5-17.5); LYMPHOCYTES # (AUTO) 1.5 K/uL (1.0-4.8); LYMPHOCYTES % (AUTO) 9.3 % (22.0-44.0); MEAN CORPUSCULAR HEMOGLOBIN 23.9 pg (26.0-34.0); MEAN CORPUSCULAR HGB CONC 32.2 G/dL (31.0-37.0); MEAN CORPUSCULAR VOLUME 74 fL (80-100); MONOCYTES # (AUTO) 1.5 K/uL (0.1-1.0); MONOCYTES % (AUTO) 9.8 % (2.0-9.0); NEUTROPHILS # (AUTO) 12.3 K/uL (1.8-7.7); NEUTROPHILS % (AUTO) 78.8 % (40.0-70.0); PLATELET COUNT (AUTO) 314 K/uL (150-450); RED CELL DISTRIBUTION WIDTH 19.7 % (11.5-14.5)
[2018-09-26 10:20] LABS: ANION GAP 9 mmol/L (8-16); CALCIUM, TOTAL 9.1 mg/dL (8.8-10.5); CARBON DIOXIDE 27 mmol/L (22-29); CHLORIDE 102 mmol/L (98-107); CREATININE 0.98 mg/dL (0.60-1.30); GLOMERULAR FILTR. RATE CALC > 60 mL/min (>60); GLUCOSE,RANDOM 161 mg/dL (70-110); SODIUM SERUM 138 mmol/L (136-145); UREA NITROGEN, BLOOD 25 mg/dL (7-18)
[2018-09-26] MEDS: INSULIN LISPRO 100 UNITS/ML SQ PRN ×2 (12:17→20:55)
[2018-09-26 12:22] VITALS: BP 130/75
[2018-09-26 15:28] VITALS: BP 124/68
[2018-09-26 19:19] VITALS: BP 133/77
[2018-09-26 20:25] LABS: GLUCOMETER DEV NAME(LOC) 5N.2; GLUCOSE,POINT OF CARE 181 MG/DL (70-110)
[2018-09-26 20:25] LABS: GLUCOMETER DEV NAME(LOC) 5N.2; GLUCOSE,POINT OF CARE 99 MG/DL (70-110)
[2018-09-26] MEDS: MONTELUKAST SODIUM 10 MG TABLET PO SCH (20:54)
[2018-09-26] MEDS: ATORVASTATIN CALCIUM 20 MG TABLET PO SCH (20:54)
[2018-09-26] MEDS: TEMAZEPAM 7.5 MG CAPSULE PO SCH (20:54)
[2018-09-26] MEDS: INSULIN GLARGINE,HUM.REC.ANLOG 100 UNITS/ML SQ SCH (20:55)
[2018-09-26 21:54] LABS: GLUCOMETER DEV NAME(LOC) 5N.2; GLUCOSE,POINT OF CARE 166 MG/DL (70-110)
[2018-09-26 23:09] VITALS: BP 132/64
[2018-09-27 04:55] VITALS: BP 131/71
[2018-09-27 06:14] LABS: GLUCOMETER DEV NAME(LOC) 5N.2; GLUCOSE,POINT OF CARE 131 MG/DL (70-110)
[2018-09-27 07:59] VITALS: BP 132/69
[2018-09-27] MEDS: OxyCODONE HCL/ACETAMINOPHEN 5-325 MG TABLET PO PRN (09:16)
[2018-09-27] MEDS: FAMOTIDINE 20 MG TABLET PO SCH (09:16)
[2018-09-27] MEDS: HydrALAZINE HCL 25 MG TABLET PO SCH ×2 (09:16→15:30)
[2018-09-27] MEDS: ASPIRIN 81 MG CHEWABLE TABLET PO SCH (09:16)
[2018-09-27] MEDS: DOCUSATE SODIUM 100 MG CAPSULE PO SCH ×2 (09:16→20:19)
[2018-09-27] MEDS: SENNA 187 MG TABLET PO SCH (09:16)
[2018-09-27] MEDS: THIAMINE HCL 100 MG TABLET PO SCH (09:16)
[2018-09-27] MEDS: OLANZapine 10 MG TABLET PO SCH ×2 (09:16→20:20)
[2018-09-27] MEDS: MULTIVITAMINS WITH MINERALS, THERAPEUTIC TABLET PO SCH (09:16)
[2018-09-27] MEDS: AmLODIPine BESYLATE 10 MG TABLET PO SCH (09:17)
[2018-09-27] MEDS: HEPARIN SODIUM,PORCINE 5,000 UNITS/ML VIAL SQ SCH ×2 (09:17→16:45)
[2018-09-27] MEDS: LACTULOSE 20 GM/30 ML SOLUTION UDCUP PO SCH (09:17)
[2018-09-27] MEDS: OxyCODONE HCL 20 MG ER TABLET PO SCH ×2 (09:20→20:20)
[2018-09-27] MEDS: INSULIN LISPRO 100 UNITS/ML SQ PRN (11:39)
[2018-09-27 11:45] VITALS: BP 115/61
[2018-09-27 16:00] VITALS: BP 94/54
[2018-09-27 19:15] VITALS: BP 147/97
[2018-09-27 19:24] LABS: GLUCOMETER DEV NAME(LOC) 5N.2; GLUCOSE,POINT OF CARE 122 MG/DL (70-110)
[2018-09-27 19:24] LABS: GLUCOMETER DEV NAME(LOC) 5N.2; GLUCOSE,POINT OF CARE 267 MG/DL (70-110)
[2018-09-27] MEDS: TEMAZEPAM 7.5 MG CAPSULE PO SCH (20:19)
[2018-09-27] MEDS: MONTELUKAST SODIUM 10 MG TABLET PO SCH (20:20)
[2018-09-27] MEDS: ATORVASTATIN CALCIUM 20 MG TABLET PO SCH (20:20)
[2018-09-27] MEDS: INSULIN GLARGINE,HUM.REC.ANLOG 100 UNITS/ML SQ SCH (20:21)
[2018-09-27 20:39] LABS: GLUCOMETER DEV NAME(LOC) 5N.2; GLUCOSE,POINT OF CARE 114 MG/DL (70-110)
[2018-09-27 23:10] VITALS: BP 152/64
[2018-09-28] MEDS: HEPARIN SODIUM,PORCINE 5,000 UNITS/ML VIAL SQ SCH ×3 (00:08→15:48)
[2018-09-28] MEDS: HydrALAZINE HCL 25 MG TABLET PO SCH ×3 (00:10→15:52)
[2018-09-28] MEDS: ACETAMINOPHEN 325 MG TABLET PO PRN (00:13)
[2018-09-28 04:00] VITALS: BP 149/76
[2018-09-28] MEDS: INSULIN LISPRO 100 UNITS/ML SQ PRN (05:42)
[2018-09-28 08:53] VITALS: BP 137/73
[2018-09-28] MEDS: OxyCODONE HCL 20 MG ER TABLET PO SCH (09:00)
[2018-09-28] MEDS: LACTULOSE 20 GM/30 ML SOLUTION UDCUP PO SCH (09:02)
[2018-09-28] MEDS: AmLODIPine BESYLATE 10 MG TABLET PO SCH (09:02)
[2018-09-28] MEDS: ASPIRIN 81 MG CHEWABLE TABLET PO SCH (09:02)
[2018-09-28] MEDS: OxyCODONE HCL/ACETAMINOPHEN 5-325 MG TABLET PO PRN (09:02)
[2018-09-28] MEDS: OLANZapine 10 MG TABLET PO SCH (09:02)
[2018-09-28] MEDS: DOCUSATE SODIUM 100 MG CAPSULE PO SCH (09:02)
[2018-09-28] MEDS: THIAMINE HCL 100 MG TABLET PO SCH (09:02)
[2018-09-28] MEDS: FAMOTIDINE 20 MG TABLET PO SCH (09:02)
[2018-09-28] MEDS: MULTIVITAMINS WITH MINERALS, THERAPEUTIC TABLET PO SCH (09:02)
[2018-09-28] MEDS: SENNA 187 MG TABLET PO SCH (09:03)
[2018-09-28 11:38] VITALS: BP 130/82
[2018-09-28 11:59] LABS: GLUCOMETER DEV NAME(LOC) 5N.2; GLUCOSE,POINT OF CARE 220 MG/DL (70-110)
== END 2018-09-28 19:16 | disposition home or self-care (01) | DRG 380 ==
LOC: EMS 03:59 → 5N 06:30 → UNDOADMIN 08:28
PROVIDERS: ADMIT Internal Medicine; ATTEND Internal Medicine
DX: L89.153 Pressure ulcer of sacral region, stage 3 (principal); E43 Unspecified severe protein-calorie malnutrition; E11.40 Type 2 diabetes mellitus with diabetic neuropathy, unspecified; I73.9 Peripheral vascular disease, unspecified; E11.51 Type 2 diabetes mellitus with diabetic peripheral angiopathy without gangrene; R62.7 Adult failure to thrive; I10 Essential (primary) hypertension; E78.5 Hyperlipidemia, unspecified; D64.9 Anemia, unspecified; E87.1 Hypo-osmolality and hyponatremia; Z86.73 Personal history of transient ischemic attack (TIA), and cerebral infarction without residual deficits; Z82.3 Family history of stroke; Z88.1 Allergy status to other antibiotic agents; Z74.01 Bed confinement status; Z89.612 Acquired absence of left leg above knee; Z89.519 Acquired absence of unspecified leg below knee; Z89.421 Acquired absence of other right toe(s); Z68.23 Body mass index [BMI] 23.0-23.9, adult
CPT/HCPCS: 83605; 83735; 84443; 87081; 93005; 97163; 97530; G0378; G0480; J1644; J1815; J7030